=== PATIENT | male | born 1980 | race Caucasian/White ===

== ENCOUNTER 2018-04-25 01:32 | Emergency (ER) | payer MEDICAID ==
[~2018-04-25] VITALS: Ht 185.4 cm; Wt 103.7 kg
[2018-04-25 01:34] VITALS: BP 134/87
[2018-04-25] MEDS ORDERED: DEXAMETHASONE 4 MG TABLET PO STA (02:26)
[2018-04-25] MEDS ORDERED: DEXAMETHASONE 4 MG TABLET ONE (02:31)
== END 2018-04-25 02:48 | disposition home or self-care (01) ==
LOC: ED 02:00
DX: J15.9 Unspecified bacterial pneumonia (principal); H00.011 Hordeolum externum right upper eyelid; Z87.891 Personal history of nicotine dependence
CPT/HCPCS: 71046; 93005; 99283